=== PATIENT | female | born 1955 | race African-American/Black ===

== ENCOUNTER 2019-12-18 18:56 | IRF | payer MEDICARE, SELFPAY ==
[2019-12-18 18:35] VITALS: BP 152/52; PULSE 70; RESP 18; TEMP 36.6; O2SAT 100; BMI 29.1
--- NOTE | 2019-12-18 19:10 | ADMGEN ---
This patient, Светлана Swan, was admitted to [facility] Room 224-02. Patient/family oriented to hospital policies and general routines including ID bracelet, bed and alarms, visiting hours, pain management, procedures, bathroom and other care routines, personal items, smoking policy, room service/diet, and visiting hours. Valuables list has been completed. Information on how to activate the Rapid Response Team has been discussed. Patient/Family are encouraged to report perceived risks to care and to ask questions if they do not understand what they are told or what they should do.
[2019-12-18 19:57] VITALS: PULSE 88
[2019-12-18] MEDS: ATORVASTATIN 40 MG TABLET PO (19:57)
[2019-12-18] MEDS: METOPROLOL TARTRATE 25 MG TABLET PO (19:57)
[2019-12-18] MEDS: CLONIDINE HCL 0.1 MG TABLET PO (19:58)
[2019-12-18 20:15] LABS: Glucose Point of Care 228 (65-105)
[2019-12-18 22:00] VITALS: BP 152/61; PULSE 85; RESP 18; TEMP 36.6; O2SAT 99
[2019-12-19 05:39] LABS: Basophils Absolute Auto 0.1 K/mm3 (0.0-0.1); Basophils Percent Auto 1.2 % (0.2-1.2); Eosinophils Absolute Auto 0.2 K/mm3 (0-0.3); Eosinophils Percent Auto 2.6 % (0-4.4); Hematocrit 36.4 % (37.0-47.0); Hemoglobin 10.9 g/dL (12.0-15.0); Immature Granulocyte Absolute 0.01 K/mm3 (0.00-0.031); Immature Granulocyte Percent A 0.1 % (0-0.5); Immature Platelet Fraction Pct 17.3 % (0.9-11.2); Lymphocytes Absolute Auto 3.03 K/mm3 (0.9-3.2); Lymphocytes Percent Auto 39.6 % (18.3-44.2); Mean Corpuscular HGB Conc 29.9 g/dl (32-36); Mean Corpuscular Hemoglobin 21.4 pg (26-34); Mean Corpuscular Volume 71.4 fl (80-100); Mean Platelet Volume 12.9 fl (7.4-10.4); Monocytes Absolute Auto 0.8 K/mm3 (0.1-0.6); Monocytes Percent Auto 10.5 % (2.6-8.5); Neutrophils Absolute Auto 3.5 K/mm3 (1.3-6.7); Platelet Count Result 251 k/mm3 (150-375); Red Cell Distribution Width 14.8 % (11.5-14.5); White Blood Count 7.7 K/mm3 (4.5-10.0)
[2019-12-19 05:46] LABS: Blood Urea Nitrogen 11 mg/dL (7-17); Calcium 9.3 mg/dL (8.4-10.2); Carbon Dioxide 27 mmol/L (22-30); Chloride 102 mmol/L (98-107); Cholesterol 207 mg/dL (0-200); Estimated CRCL calculation 61 ml/min; Estimated Glomerular Filt Rate > 60; Glucose 173 mg/dL (65-105); HDL Direct 30 mg/dL; Potassium 3.7 mmol/L (3.4-5.0); Sodium 138 mmol/L (137-145); Triglycerides 189 mg/dL (<150)
[2019-12-19 05:50] LABS: Hemoglobin A1C 10.8 % (<5.7)
[2019-12-19 05:57] LABS: LDL Cholesterol Direct 132 mg/dL
[2019-12-19 06:00] VITALS: BP 174/66; PULSE 76; RESP 18; TEMP 36.9; O2SAT 99
[2019-12-19 06:41] LABS: Glucose Point of Care 189 (65-105)
[2019-12-19 08:42] VITALS: PULSE 84
[2019-12-19] MEDS: ASPIRIN 81 MG ENTERIC TABLET PO (08:42)
[2019-12-19] MEDS: AMLODIPINE BESYLATE 5 MG TABLET 10 MG PO (08:42)
[2019-12-19] MEDS: metFORMIN HCL 500 MG TABLET PO (08:42)
[2019-12-19] MEDS: METOPROLOL TARTRATE 25 MG TABLET PO (08:42)
[2019-12-19] MEDS: CLONIDINE HCL 0.1 MG TABLET PO ×2 (09:10→20:53)
--- NOTE | 2019-12-19 10:30 | WPDREHABHP ---
H&P: HPI History of Present Illness Chief complaint: CVA Narrative: Светлана Swan is a 64 year old female HISTORY OF PRESENT ILLNESS: The patient's primary rehab impairment category is 0 1-stroke The etiologic diagnosis is acute left medial pontine infarct I saw this patient [id number] on December 19, 2019 at 10:30 a.m. however the H&P could not be dictated because of the EHR technology down The patient is a 64-year-old right-handed Afro [place]yanese woman with a prior medical history of hypertension, hyperlipidemia, diabetes mellitus in ( newly diagnosed this admission), who presented to [facility] on December 12, 2019 for chest pain. She also reported dizziness and elevated blood pressure for the week prior to admission. She stated her chest pain was not ache lasting 3 to 5 seconds only. Her blood pressure in the emergency room was 249/96. Patient reported a chronic mild right arm and the right leg weakness but reported that since she has been hospitalized this is [place] she has had significant increase in the right arm and right leg weakness such that the she cannot walk easily. This admission sodium was 133, potassium 3.8, creatinine 0.8, troponin, 1 was negative for injury O on 3 occasions, LDL was elevated to 43 and triglycerides elevated to 196. Her glucose was elevated to 336 with a hemoglobin A1c of 10.2. Chest x-ray demonstrated no acute pulmonary disease, with calcified plaque in the thoracic aorta. EKG demonstrated normal sinus rhythm. 94 beats per minute, right bundle branch block, left posterior fascicular block, and bifascicular block. CT have that head was negative MRI the brain demonstrated a left medial pontine /basis pontis stroke CT of the head demonstrated significant atherosclerosis and calcified plaques affecting the bilateral internal carotid arteries but no large vessel occlusion. Neurology recommended to continue on aspirin and a high-intensity statin. No anticoagulants at this time due to the risk of bleeding. Cardiology would be like to see the patient as an outpatient for a nuclear stress test. The patient presents alert oriented x3 and demonstrated impaired balance decrease stent incoordination and double vision Therapy was initiated at the acute care facility and the patient transferred to us from [facility] on December 18, 2019 on FALLS OR SURGERIES: The patient has had no major surgeries in the 100 days prior to admission. They had no falls in the past year. They had no falls with injury in the past year. PAST MEDICAL HISTORY: hypertension hyperlipidemia and recently diagnosed during this hospitalization at the acute care hospitalization diabetes mellitus PAST SURGICAL HISTORY: none SOCIAL HISTORY: the patient lives with her significant other in a 2nd floor apartment with a full flight of stairs to enter. She was previously completely independent without device she did not drive. FAMILY HISTORY: Noncontributory PRIOR LEVEL OF FUNCTION: Eating was INDEPENDENT Oral Care was INDEPENDENT Toileting Hygiene was INDEPENDENT Shower/Bathing was INDEPENDENT Upper Body Dressing was INDEPENDENT Lower Body Dressing was INDEPENDENT Donning/[place] Footwear was INDEPENDENT Rolling Left and Right was INDEPENDENT Sit to Lying was INDEPENDENT Lying to Sitting was INDEPENDENT Sit to Stand was INDEPENDENT Bed to Chair Transfers was INDEPENDENT Toilet Transfers was INDEPENDENT Walking was INDEPENDENT 750 feet of more with NO DEVICE Wheelchair Mobility was NOT APPLICABLE PRIOR TO ADMISSION Stairs were INDEPENDENT CURRENT LEVEL OF FUNCTION: Eating was independent Oral Care was partial or moderate assist Toileting Hygiene was substantial or maximal assistance Shower/Bathing was substantial or maximal assist Upper Body Dressing was partial or moderate assistance Lower Body Dressing was substantial or maximal assistance Donning/[place] Footwear was subst
[2019-12-19] MEDS: ONDANSETRON HCL ODT 4 MG TABLET PO (11:35)
[2019-12-19 11:46] LABS: Glucose Point of Care 297 (65-105)
[2019-12-19 12:30] VITALS: BP 170/90; PULSE 80
[2019-12-19 14:00] VITALS: BP 141/67; PULSE 70; RESP 20; TEMP 36.6; O2SAT 100
[2019-12-19 15:23] VITALS: BMI 29.1
[2019-12-19 16:51] LABS: Glucose Point of Care 214 (65-105)
--- NOTE | 2019-12-19 17:00 | RPD ---
INDIVIDUALIZED PLAN OF CARE FOR Светлана Swan Brief Synthesis of Pre-Admission Screen, Post-Admission Evaluation and Therapy Evaluations: The patient presents to rehab with Acute left medial pontine infarct. Comorbidities include Hypertension, hyperlipidemia, new onset diabetes mellitus, hypertensive urgency, right-hemiparesis, slurred speech, thoracic aorta atherosclerosis, chest pain, non-adherence to medical therapy, blurry vision, right foot drop.The patient requires physician services for neurology services, medical oversight, and coordination of care. The patient needs physician monitoring of anemia and adverse reactions to new medications. The patient requires nursing services for frequent neuro checks, anticoagulation therapy, medication management and education, pressure relief and skin care management, monitoring of labs, bowel and bladder training, diabetes management and education, and fall/safety precautions. Deficits include:ADLs, Balance, Endurance Mobility, Pain Management, ROM, Safety, Strength,Speech, Transfers Dealer Sales Rep/Case Management for: Discharge Planning and Patient/Family Counseling Physical Therapy: 5 days per week for 75 minutes. Treatments may include: Therapeutic Exercise, Gait Training, Neuromuscular Re-education, Transfer Training, Community Reintegration, Bed Mobility, Patient/Family Education, Wheelchair Mobility Group Therapy/Concurrent Therapy Rationales: -Improve attention span during functional activities in a distracted environment. -Enhance problem solving and/or adequate judgment skills during functional activities in a distracted environment. -Promote increased safety awareness in a distracted environment to reduce fall risk with functional tasks, transfers, and ambulation to allow a more safe, self-sufficient return to the home environment. -Improve dynamic balance skills to promote safety and independence with functional activities in a distracted environment for maximum gain. Occupational Therapy: 5 days per week for 75 minutes. Treatments may include: Therapeutic Exercise, Therapeutic Activity, Cognitive Training, Self-Care Transfer Training, Community Reintegration, Home Management, Patient/Family Education, Wheelchair Mobility Training, Energy Conservation Training Group Therapy/Concurrent Therapy Rationales: -Allow therapist to observe and teach generalization and carry-over of skills learned in individual therapy. -Enhance problem solving and sequencing skills during therapeutic activities in a distracted environment. -Promote increased safety awareness in a realistic setting to reduce fall risk with functional tasks due to visual and verbal distractions. -Increase functional level with ADLs, ADL transfers and use of adaptive equipment through therapeutic activities with others while promoting safety to allow a more safe, self-sufficient return home. Speech Therapy: 5 days per week for 30 minutes. Treatments may include: Dysphasia Therapy, Speech/Language/Communication Therapy, Cognitive Training, Patient/Family Education Group Therapy/Concurrent Therapy - Rationale: -Allow therapist to observe and teach generalization and carry-over of skills learned in individual therapy. -Improve comprehension skills with complex or abstract ideas through discussion in a realistic setting. -Enhance problem solving skills with complex issues during activities in a distracted environment. -Promote increased memory skills and concentration in a distracted environment for a safe transition home. -Improve attention and focus with language/communication skills in a realistic and supportive therapeutic setting. -Allow for practice of expression of basic needs and ideas through functional activities with others. Medical Prognosis: Good Anticipated Length of Stay: 12 days Rehab Goals: Eating Goal: 06-Independent Oral Hygiene Goal: 06-Independent Toileting Hygiene Goal: 06-Independent Shower/Bathe Self Goal: 06-Indepe
[2019-12-19] MEDS: ATORVASTATIN 40 MG TABLET PO (20:52)
[2019-12-19 20:53] VITALS: PULSE 80
[2019-12-19] MEDS: METOPROLOL SUCCINATE EXT REL 50 MG TABCR PO (20:53)
[2019-12-19 21:13] LABS: Glucose Point of Care 258 (65-105)
[2019-12-19 22:00] VITALS: BP 181/68; PULSE 83; RESP 19; TEMP 36.8; O2SAT 99
[2019-12-20 06:00] VITALS: BP 161/67; PULSE 78; RESP 18; TEMP 36.7; O2SAT 100
[2019-12-20 06:41] LABS: Glucose Point of Care 239 (65-105)
[2019-12-20] MEDS: AMLODIPINE BESYLATE 5 MG TABLET 10 MG PO (09:31)
[2019-12-20] MEDS: METOPROLOL SUCCINATE EXT REL 50 MG TABCR PO ×2 (09:32→20:44)
[2019-12-20] MEDS: ASPIRIN 81 MG ENTERIC TABLET PO (09:32)
[2019-12-20] MEDS: metFORMIN HCL 500 MG TABLET PO ×2 (09:32→18:12)
[2019-12-20] MEDS: CLONIDINE HCL 0.1 MG TABLET PO ×2 (09:39→20:44)
[2019-12-20 12:26] LABS: Glucose Point of Care 338 (65-105)
[2019-12-20 14:00] VITALS: BP 147/78; PULSE 72; RESP 17; TEMP 36.3; O2SAT 100
[2019-12-20 17:47] LABS: Glucose Point of Care 248 (65-105)
[2019-12-20] MEDS: INSULIN ASPART (*BKC) 100 UNITS/ML SUB-Q (18:13)
[2019-12-20 20:44] VITALS: PULSE 78
[2019-12-20] MEDS: ATORVASTATIN 40 MG TABLET PO (20:44)
[2019-12-20 21:19] LABS: Glucose Point of Care 232 (65-105)
[2019-12-20 22:00] VITALS: BP 139/66; PULSE 78; RESP 17; TEMP 36.4; O2SAT 98
[2019-12-21 06:00] VITALS: BP 154/59; PULSE 70; RESP 19; TEMP 36.4; O2SAT 100
[2019-12-21 07:16] LABS: Glucose Point of Care 223 (65-105)
[2019-12-21 08:44] VITALS: PULSE 70
[2019-12-21] MEDS: ASPIRIN 81 MG ENTERIC TABLET PO (08:44)
[2019-12-21] MEDS: CLONIDINE HCL 0.1 MG TABLET PO ×2 (08:44→20:13)
[2019-12-21] MEDS: metFORMIN HCL 500 MG TABLET PO ×2 (08:44→18:06)
[2019-12-21] MEDS: AMLODIPINE BESYLATE 5 MG TABLET 10 MG PO (08:44)
[2019-12-21] MEDS: METOPROLOL SUCCINATE EXT REL 50 MG TABCR PO ×2 (08:44→20:10)
[2019-12-21] MEDS: INSULIN ASPART (*BKC) 100 UNITS/ML SUB-Q ×3 (08:45→18:07)
[2019-12-21 12:14] LABS: Glucose Point of Care 273 (65-105)
[2019-12-21 14:00] VITALS: BP 145/54; PULSE 78; RESP 16; TEMP 36.4; O2SAT 100
--- NOTE | 2019-12-21 14:24 | WPDNEURORHBP ---
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 and the right-sided hemiparesis improving and doing fairly well with using the patch alternating right left eye Patient denies any headache chest pain shortness of breath or any neurological complaints or findings Review of Systems Constitutional: Constitutional: Reports no additional constitutional complaints Eyes: Eyes: Reports no additional eye complaints ENT: Reports system reviewed and no additional complaints, except as documented Cardiovascular: Cardiovascular: Reports no additional cardiovascular complaints Respiratory: Respiratory: Reports no additional respiratory complaints Gastrointestinal: Gastrointestinal: Reports no additional gastrointestinal complaints Genitourinary: Genitourinary: Reports no additional female genitourinary complaints Musculoskeletal: Musculoskeletal: Reports no additional musculoskeletal complaints Integumentary/Breasts: Skin/Breast: Reports system reviewed and no additional complaints, except as docu Neurologic: Reports system reviewed and no additional complaints, except as documented Psychiatric: Psychiatric: Reports no additional psychiatric complaints Functional Status Ambulation Ability Ability to Ambulate 10 Feet: Minimum Assistance X 1 Ability to Ambulate 50 Feet With 2 Turns: Minimum Assistance X 1 Ability to Ambulate 150 Feet: Minimum Assistance X 1 Ambulation Assistive Devices: Walker, Wheeled Transfers Ability Ability to Transfer In/Out of Chair: Minimum Assistance X 1 Exam Const: General: comfortable and no acute distress HENMT: General nose exam: Normal nares present Mouth: Yes moist mucous membranes Eyes: Other: left 6th nerve palsy stable Neck: Neck: supple and no JVD Resp: Effort & Inspection: normal respiratory effort Auscultation: clear to auscultation bilaterally Cardio: Rate: regular rate Rhythm: regular rhythm GI: GI Palp: Yes Soft to palpation Auscultation: normal bowel sounds : External Female Exam: normal external appearance Skin: General skin exam: normal color and no rashes or lesions noted Neuro: Other: right-sided hemiparesis of moderately severe degree and left-sided 6th not palsy slowly improving Extrem: General: normal to inspection Objective Data Vital Signs Vital Signs: Vital Signs - 24 hr 12/20/19 20:44 12/20/19 22:00 12/21/19 06:00 Temperature 36.4 C 36.4 C L Pulse Rate 78 78 70 Respiratory Rate 17 19 Blood Pressure 139/66 154/59 H Pulse Oximetry 98 100 12/21/19 08:44 Temperature Pulse Rate 70 Respiratory Rate Blood Pressure Pulse Oximetry Intake/Output Intake/Output: Intake & Output 12/18/19 12/19/19 12/20/19 12/21/19 23:59 23:59 23:59 23:59 Intake Total 720 960 360 Balance 720 960 360 Meds/Results Medications: Active Medications Generic Name Dose Route Start Last Admin Trade Name Freq PRN Reason Stop Dose Admin Amlodipine Besylate 10 mg 12/19/19 09:00 12/21/19 08:44 Norvasc PO 10 mg DAILY HARRISON Administration Aspirin 81 mg 12/19/19 09:00 12/21/19 08:44 Aspirin Ec PO 81 mg DAILY HARRISON Administration Atorvastatin Calcium 40 mg 12/18/19 21:00 12/20/19 20:44 Lipitor PO 40 mg HS HARRISON Administration Clonidine HCl 0.1 mg 12/18/19 21:00 12/21/19 08:44 Catapres PO 0.1 mg Q12H HARRISON Administration Dextrose 12.5 gm 12/20/19 16:07 Dextrose 50% Syringe IV PUSH PRN PRN Hypoglycemia Protocol Glucagon 1 mg 12/20/19 16:07 Glucagon For Inj IM PRN PRN Hypoglycemia Protocol Glucose 15 gm 12/20/19 16:07 Glutose 15 PO PRN PRN Hypoglycemia Protocol Dextrose 1,000 mls @ 100 mls/hr 12/20/19 16:07 Dextrose 5% 1,000 Ml IVPB PRN PRN Hypoglycemia Protocol Insulin Aspart 2 - 5 units 12/20/19 17:00 12/21/19 12:28 Novolog SUB-Q 3 units
[2019-12-21 17:44] LABS: Glucose Point of Care 212 (65-105)
[2019-12-21 20:10] VITALS: PULSE 80
[2019-12-21] MEDS: ATORVASTATIN 40 MG TABLET PO (20:10)
[2019-12-21 20:35] LABS: Glucose Point of Care 215 (65-105)
[2019-12-21 22:00] VITALS: BP 148/63; PULSE 78; RESP 18; TEMP 36.4; O2SAT 100
[2019-12-22 06:00] VITALS: BP 140/70; PULSE 72; RESP 18; TEMP 36.6; O2SAT 100
[2019-12-22 07:06] LABS: Glucose Point of Care 225 (65-105)
[2019-12-22 10:30] VITALS: BP 157/54; PULSE 75
[2019-12-22 10:31] VITALS: PULSE 75
[2019-12-22] MEDS: METOPROLOL SUCCINATE EXT REL 50 MG TABCR PO ×2 (10:31→20:31)
[2019-12-22] MEDS: metFORMIN HCL 500 MG TABLET PO ×2 (10:31→17:46)
[2019-12-22] MEDS: CLONIDINE HCL 0.1 MG TABLET PO ×2 (10:32→20:31)
[2019-12-22] MEDS: ASPIRIN 81 MG ENTERIC TABLET PO (10:32)
[2019-12-22] MEDS: AMLODIPINE BESYLATE 5 MG TABLET 10 MG PO (10:32)
[2019-12-22] MEDS: INSULIN ASPART (*BKC) 100 UNITS/ML SUB-Q ×3 (10:33→17:47)
[2019-12-22 12:27] LABS: Glucose Point of Care 272 (65-105)
[2019-12-22 14:00] VITALS: BP 172/64; PULSE 77; RESP 18; TEMP 36.3; O2SAT 100
[2019-12-22 17:25] LABS: Glucose Point of Care 221 (65-105)
[2019-12-22 20:31] VITALS: PULSE 76
[2019-12-22] MEDS: ATORVASTATIN 40 MG TABLET PO (20:31)
[2019-12-22 21:30] LABS: Glucose Point of Care 224 (65-105)
[2019-12-22 22:00] VITALS: BP 167/64; PULSE 77; RESP 18; TEMP 36.2; O2SAT 100
[2019-12-23 06:00] VITALS: BP 148/74; PULSE 72; RESP 18; TEMP 36.3; O2SAT 100
[2019-12-23 06:43] LABS: Glucose Point of Care 243 (65-105)
[2019-12-23 09:07] VITALS: PULSE 72
[2019-12-23] MEDS: CLONIDINE HCL 0.1 MG TABLET PO ×2 (09:07→20:33)
[2019-12-23] MEDS: ASPIRIN 81 MG ENTERIC TABLET PO (09:07)
[2019-12-23] MEDS: AMLODIPINE BESYLATE 5 MG TABLET 10 MG PO (09:07)
[2019-12-23] MEDS: metFORMIN HCL 500 MG TABLET PO ×2 (09:07→17:52)
[2019-12-23] MEDS: METOPROLOL SUCCINATE EXT REL 50 MG TABCR PO ×2 (09:07→20:33)
[2019-12-23] MEDS: INSULIN ASPART (*BKC) 100 UNITS/ML SUB-Q ×2 (09:09→12:38)
[2019-12-23 12:28] LABS: Glucose Point of Care 277 (65-105)
--- NOTE | 2019-12-23 12:43 | WPDNEURORHBP ---
Subjective Date/time seen: 12/23/19 12:43 Interval history: this 64-year-old Afro-[place] woman is here recuperating from stroke she has left-sided medial pontine infarct with 6th nerve palsy and right-sided hemiparesis patient denies any further neurological symptoms her diplopia is improving she is using alternating covering the eyes and of course engage in therapy quite well The niece and sister were present at the time of team conference their questions were answered patient is making progress no headache chest pain shortness of breath nausea vomiting fevers chills sore throat Review of Systems Constitutional: Constitutional: Reports no additional constitutional complaints Eyes: Eyes: Reports no additional eye complaints ENT: Reports system reviewed and no additional complaints, except as documented Cardiovascular: Cardiovascular: Reports no additional cardiovascular complaints Respiratory: Respiratory: Reports no additional respiratory complaints Gastrointestinal: Gastrointestinal: Reports no additional gastrointestinal complaints Genitourinary: Genitourinary: Reports no additional female genitourinary complaints Musculoskeletal: Musculoskeletal: Reports no additional musculoskeletal complaints Integumentary/Breasts: Skin/Breast: Reports system reviewed and no additional complaints, except as docu Neurologic: Reports system reviewed and no additional complaints, except as documented Psychiatric: Psychiatric: Reports no additional psychiatric complaints Functional Status Ambulation Ability Ability to Ambulate 10 Feet: Contact Guard Ability to Ambulate 50 Feet With 2 Turns: Contact Guard Ability to Ambulate 150 Feet: Contact Guard Ambulation Assistive Devices: Walker, Wheeled Transfers Ability Ability to Transfer In/Out of Chair: Minimum Assistance X 1 Exam Const: General: comfortable and no acute distress HENMT: General nose exam: Normal nares present Mouth: Yes moist mucous membranes Eyes: Other: improving 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 Neck: Neck: supple and no JVD Resp: Effort & Inspection: normal respiratory effort Auscultation: clear to auscultation bilaterally Cardio: Rate: regular rate Rhythm: regular rhythm GI: GI Palp: Yes Soft to palpation Auscultation: normal bowel sounds Skin: General skin exam: normal color and no rashes or lesions noted Neuro: Other: improving cranial nerve palsy and right-sided hemiparesis her sugars are in 200s we will ask over childbirth educator to give suggestion Extrem: General: normal to inspection Objective Data Vital Signs Vital Signs: Vital Signs - 24 hr 12/22/19 14:00 12/22/19 20:31 12/22/19 22:00 Temperature 36.3 C L 36.2 C L Pulse Rate 77 76 77 Respiratory Rate 18 18 Blood Pressure 172/64 H 167/64 H Pulse Oximetry 100 100 12/23/19 06:00 12/23/19 09:07 Temperature 36.3 C L Pulse Rate 72 72 Respiratory Rate 18 Blood Pressure 148/74 H Pulse Oximetry 100 Intake/Output Intake/Output: Intake & Output 12/20/19 12/21/19 12/22/19 12/23/19 23:59 23:59 23:59 23:59 Intake Total 960 960 600 360 Balance 960 960 600 360 Meds/Results Medications: Active Medications Generic Name Dose Route Start Last Admin Trade Name Freq PRN Reason Stop Dose Admin Amlodipine Besylate 10 mg 12/19/19 09:00 12/23/19 09:07 Norvasc PO 10 mg DAILY HARRISON Administration Aspirin 81 mg 12/19/19 09:00 12/23/19 09:07 Aspirin Ec PO 81 mg DAILY HARRISON Administration Atorvastatin Calcium 40 mg 12/18/19 21:00 12/22/19 20:31 Lipitor PO 40 mg HS HARRISON Administration Clonidine HCl 0.1 mg 12/18/19 21:00 12/23/19 09:07 Catapres PO 0.1 mg Q12H HARRISON Administration Dextrose 12.5 gm 12/20/19 16:07 Dextrose 50% Syringe IV PUSH PRN PRN Hypoglycemia Protocol Glucagon 1 mg 12/20/19 16:07 Glucagon For Inj IM PRN PRN Hypoglycemia Protocol Glucose 15 gm 12/20/19 16:07 Glutose 15 PO
[2019-12-23 14:00] VITALS: BP 138/61; PULSE 70; RESP 16; TEMP 36.3; O2SAT 100
--- NOTE | 2019-12-23 15:22 | PCCCNOTE ---
On 12/23/19, the student, [Samm Perea ], provided care and completed [facility] documentation on this patient. I have reviewed the student's documentation and agree with the findings.
[2019-12-23 17:14] LABS: Glucose Point of Care 185 (65-105)
[2019-12-23 20:33] VITALS: PULSE 80
[2019-12-23] MEDS: ATORVASTATIN 40 MG TABLET PO (20:33)
[2019-12-23 21:51] LABS: Glucose Point of Care 208 (65-105)
[2019-12-23 22:00] VITALS: BP 159/66; PULSE 80; RESP 20; TEMP 36.6; O2SAT 100
[2019-12-24 06:00] VITALS: BP 152/69; PULSE 82; RESP 20; TEMP 36.2; O2SAT 96
[2019-12-24 08:11] LABS: Glucose Point of Care 222 (65-105)
[2019-12-24] MEDS: metFORMIN HCL 500 MG TABLET PO ×2 (08:38→17:07)
[2019-12-24] MEDS: ASPIRIN 81 MG ENTERIC TABLET PO (08:38)
[2019-12-24] MEDS: AMLODIPINE BESYLATE 5 MG TABLET 10 MG PO (08:38)
[2019-12-24 08:39] VITALS: PULSE 82
[2019-12-24] MEDS: INSULIN ASPART (*BKC) 100 UNITS/ML SUB-Q ×2 (08:39→12:35)
[2019-12-24] MEDS: METOPROLOL SUCCINATE EXT REL 50 MG TABCR PO ×2 (08:39→21:20)
[2019-12-24] MEDS: CLONIDINE HCL 0.1 MG TABLET PO ×2 (08:39→21:19)
--- NOTE | 2019-12-24 11:14 | WPDNEURORHBP ---
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 and right-sided hemiparesis from which she is improving quite a bit She denies any headache nausea vomiting chest pain shortness of breath Review of Systems Constitutional: Constitutional: Reports no additional constitutional complaints Eyes: Eyes: Reports no additional eye complaints ENT: Reports system reviewed and no additional complaints, except as documented Cardiovascular: Cardiovascular: Reports no additional cardiovascular complaints Respiratory: Respiratory: Reports no additional respiratory complaints Gastrointestinal: Gastrointestinal: Reports no additional gastrointestinal complaints Genitourinary: Genitourinary: Reports no additional female genitourinary complaints Musculoskeletal: Musculoskeletal: Reports no additional musculoskeletal complaints Integumentary/Breasts: Skin/Breast: Reports system reviewed and no additional complaints, except as docu Neurologic: Reports system reviewed and no additional complaints, except as documented Psychiatric: Psychiatric: Reports no additional psychiatric complaints Functional Status Ambulation Ability Ability to Ambulate 10 Feet: Standby Assistance Ability to Ambulate 50 Feet With 2 Turns: Standby Assistance Ability to Ambulate 150 Feet: Contact Guard Ambulation Assistive Devices: Walker, Wheeled Transfers Ability Ability to Transfer In/Out of Chair: Minimum Assistance X 1 Exam Const: General: comfortable and no acute distress HENMT: General nose exam: Normal nares present Mouth: Yes moist mucous membranes Eyes: General: appearance normal, both eyes and all related structures Neck: Neck: supple and no JVD Resp: Effort & Inspection: normal respiratory effort Auscultation: clear to auscultation bilaterally Cardio: Rate: regular rate Rhythm: regular rhythm GI: GI Palp: Yes Soft to palpation Auscultation: normal bowel sounds Skin: General skin exam: normal color and no rashes or lesions noted Neuro: Other: the 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 and right-sided hemiparesis is improving Extrem: General: normal to inspection Objective Data Vital Signs Vital Signs: Vital Signs - 24 hr 12/23/19 14:00 12/23/19 20:33 12/23/19 22:00 Temperature 36.3 C L 36.6 C Pulse Rate 70 80 80 Respiratory Rate 16 20 Blood Pressure 138/61 159/66 H Pulse Oximetry 100 100 12/24/19 06:00 12/24/19 08:39 Temperature 36.2 C L Pulse Rate 82 82 Respiratory Rate 20 Blood Pressure 152/69 H Pulse Oximetry 96 Intake/Output Intake/Output: Intake & Output 12/21/19 12/22/19 12/23/19 12/24/19 23:59 23:59 23:59 23:59 Intake Total 960 600 840 240 Balance 960 600 840 240 Meds/Results Medications: Active Medications Generic Name Dose Route Start Last Admin Trade Name Freq PRN Reason Stop Dose Admin Amlodipine Besylate 10 mg 12/19/19 09:00 12/24/19 08:38 Norvasc PO 10 mg DAILY HARRISON Administration Aspirin 81 mg 12/19/19 09:00 12/24/19 08:38 Aspirin Ec PO 81 mg DAILY HARRISON Administration Atorvastatin Calcium 40 mg 12/18/19 21:00 12/23/19 20:33 Lipitor PO 40 mg HS HARRISON Administration Clonidine HCl 0.1 mg 12/18/19 21:00 12/24/19 08:39 Catapres PO 0.1 mg Q12H HARRISON Administration Dextrose 12.5 gm 12/20/19 16:07 Dextrose 50% Syringe IV PUSH PRN PRN Hypoglycemia Protocol Glucagon 1 mg 12/20/19 16:07 Glucagon For Inj IM PRN PRN Hypoglycemia Protocol Glucose 15 gm 12/20/19 16:07 Glutose 15 PO PRN PRN Hypoglycemia Protocol Dextrose 1,000 mls @ 100 mls/hr 12/20/19 16:07 Dextrose 5% 1,000 Ml IVPB PRN PRN Hypoglycemia Protocol Insulin Aspart 2 - 5 units 12/20/19 17:00 12/24/19 08:39 Novolog SUB-Q 2 units TIDWM HARRISON Administration Protoc
[2019-12-24 12:14] LABS: Glucose Point of Care 291 (65-105)
[2019-12-24] MEDS: SENNA/DOCUSATE SODIUM TABLET 2 TAB PO (12:35)
[2019-12-24 14:00] VITALS: BP 147/64; PULSE 75; RESP 16; TEMP 36.2; O2SAT 98
[2019-12-24 16:52] LABS: Glucose Point of Care 182 (65-105)
[2019-12-24] MEDS: ATORVASTATIN 40 MG TABLET PO (21:17)
[2019-12-24 21:20] VITALS: PULSE 72
[2019-12-24 22:00] VITALS: BP 158/61; PULSE 59; RESP 18; TEMP 36.4; O2SAT 97
[2019-12-24 22:34] LABS: Glucose Point of Care 221 (65-105)
[2019-12-25 06:00] VITALS: BP 134/52; PULSE 82; RESP 18; TEMP 36.8; O2SAT 97
[2019-12-25 07:14] LABS: Glucose Point of Care 190 (65-105)
[2019-12-25] MEDS: AMLODIPINE BESYLATE 5 MG TABLET 10 MG PO (08:52)
[2019-12-25] MEDS: ASPIRIN 81 MG ENTERIC TABLET PO (08:52)
[2019-12-25] MEDS: metFORMIN HCL 500 MG TABLET PO ×2 (08:52→17:53)
[2019-12-25 08:53] VITALS: PULSE 82
[2019-12-25] MEDS: CLONIDINE HCL 0.1 MG TABLET PO ×2 (08:53→21:43)
[2019-12-25] MEDS: METOPROLOL SUCCINATE EXT REL 50 MG TABCR PO ×2 (08:53→21:43)
[2019-12-25 12:30] LABS: Glucose Point of Care 254 (65-105)
[2019-12-25] MEDS: INSULIN ASPART (*BKC) 100 UNITS/ML SUB-Q ×2 (12:44→17:53)
[2019-12-25 14:00] VITALS: BP 156/60; PULSE 80; RESP 20; TEMP 36.6; O2SAT 100
[2019-12-25 17:15] LABS: Glucose Point of Care 271 (65-105)
[2019-12-25 20:46] LABS: Glucose Point of Care 183 (65-105)
[2019-12-25] MEDS: ATORVASTATIN 40 MG TABLET PO (21:39)
[2019-12-25 21:43] VITALS: PULSE 80
[2019-12-25 22:00] VITALS: BP 159/64; PULSE 75; RESP 18; TEMP 36.8; O2SAT 98
[2019-12-26 04:57] LABS: Basophils Absolute Auto 0.1 K/mm3 (0.0-0.1); Basophils Percent Auto 1.4 % (0.2-1.2); Eosinophils Absolute Auto 0.3 K/mm3 (0-0.3); Eosinophils Percent Auto 3.1 % (0-4.4); Hematocrit 36.1 % (37.0-47.0); Hemoglobin 10.8 g/dL (12.0-15.0); Immature Granulocyte Absolute 0.02 K/mm3 (0.00-0.031); Immature Granulocyte Percent A 0.2 % (0-0.5); Immature Platelet Fraction Pct 15.8 % (0.9-11.2); Lymphocytes Absolute Auto 3.17 K/mm3 (0.9-3.2); Lymphocytes Percent Auto 36.3 % (18.3-44.2); Mean Corpuscular HGB Conc 29.9 g/dl (32-36); Mean Corpuscular Hemoglobin 21.6 pg (26-34); Mean Corpuscular Volume 72.2 fl (80-100); Mean Platelet Volume 13.2 fl (7.4-10.4); Monocytes Absolute Auto 0.7 K/mm3 (0.1-0.6); Monocytes Percent Auto 8.2 % (2.6-8.5); Neutrophils Absolute Auto 4.4 K/mm3 (1.3-6.7); Neutrophils Percent Auto 50.8 % (45.5-73.1); Platelet Count Result 241 k/mm3 (150-375); Red Cell Distribution Width 14.9 % (11.5-14.5); White Blood Count 8.7 K/mm3 (4.5-10.0)
[2019-12-26 05:15] LABS: Blood Urea Nitrogen 12 mg/dL (7-17); Calcium 9.3 mg/dL (8.4-10.2); Carbon Dioxide 26 mmol/L (22-30); Chloride 99 mmol/L (98-107); Estimated CRCL calculation 70 ml/min; Estimated Glomerular Filt Rate > 60; Glucose 197 mg/dL (65-105); Sodium 135 mmol/L (137-145)
[2019-12-26 06:00] VITALS: BP 131/55; PULSE 74; RESP 18; TEMP 36.9; O2SAT 99
[2019-12-26 06:04] LABS: Large Platelets Present; Platelet Estimate Adequate (Adequate)
[2019-12-26 06:05] LABS: Hypochromasia 1+ (NORMAL)
[2019-12-26 07:40] LABS: Glucose Point of Care 222 (65-105)
[2019-12-26 09:16] VITALS: PULSE 55
[2019-12-26] MEDS: AMLODIPINE BESYLATE 5 MG TABLET 10 MG PO (09:16)
[2019-12-26] MEDS: CLONIDINE HCL 0.1 MG TABLET PO ×2 (09:16→20:13)
[2019-12-26] MEDS: ASPIRIN 81 MG ENTERIC TABLET PO (09:16)
[2019-12-26] MEDS: metFORMIN HCL 500 MG TABLET PO (09:16)
[2019-12-26] MEDS: METOPROLOL SUCCINATE EXT REL 50 MG TABCR PO ×2 (09:16→20:14)
[2019-12-26] MEDS: INSULIN ASPART (*BKC) 100 UNITS/ML SUB-Q ×3 (09:17→17:57)
[2019-12-26 10:30] VITALS: BMI 29.1
--- NOTE | 2019-12-26 11:30 | PCDIET ---
Nutrition Follow-Up Complete: Altered nutrition related labs related to diabetes mellitus as evidenced by HgbA1C of 10.8%. Patient to consume 75% of meals or greater Goal met. Pt has eaten 75-100% of all meals. Nutrition recommendation: Recommend continuation of DM CHO consistent diet to ensure pt's nutritional needs are met and blood glucose levels can be controlled. Last recorded weight is 69.9 kg. Bowel Motility: +BM 12/24 Labs Reviewed:Na(135), K(4.0), Cr(0.6), Glu(197) Meds Noted:Senokot, Zofran ODT, metformin Additional Notes: Pt states appetite comes and goes, has been eating 75-100% of all meals. Pt reports no N/V or abdominal pain. She does complain of constipation but says this is normal, even at home she has issues with constipation. Briefly discussed with her that foods with fiber (vegetables, whole grains), along with adequate fluid intake can help with constipation. Noted pt is receiving Senokot. Follow up in 7 days.
--- NOTE | 2019-12-26 12:17 | PCNSR ---
On 12/26/19, the student, Kinjal Burgos, provided care and completed [facility] documentation on this patient. I have reviewed the student's documentation and agree with the findings.
[2019-12-26 12:44] LABS: Glucose Point of Care 248 (65-105)
[2019-12-26 14:00] VITALS: BP 138/59; PULSE 70; RESP 16; TEMP 36.6; O2SAT 100
--- NOTE | 2019-12-26 15:04 | WPDNEURORHBP ---
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 with diplopia and right-sided hemiparesis Patient is improving overall however is still is bothered by double vision until a less she puts the eye patch on to have monocular vision but she will be comfortable to deal with it She denies any headache chest pain shortness of breath nausea vomiting Review of Systems Constitutional: Constitutional: Reports no additional constitutional complaints Eyes: Eyes: Reports no additional eye complaints ENT: Reports system reviewed and no additional complaints, except as documented Cardiovascular: Cardiovascular: Reports no additional cardiovascular complaints Respiratory: Respiratory: Reports no additional respiratory complaints Gastrointestinal: Gastrointestinal: Reports no additional gastrointestinal complaints Genitourinary: Genitourinary: Reports no additional female genitourinary complaints Musculoskeletal: Musculoskeletal: Reports no additional musculoskeletal complaints Integumentary/Breasts: Skin/Breast: Reports system reviewed and no additional complaints, except as docu Neurologic: Reports system reviewed and no additional complaints, except as documented Psychiatric: Psychiatric: Reports no additional psychiatric complaints Functional Status Ambulation Ability Ability to Ambulate 10 Feet: Standby Assistance Ability to Ambulate 50 Feet With 2 Turns: Contact Guard Ability to Ambulate 150 Feet: Contact Guard Ambulation Assistive Devices: Walker, Wheeled Transfers Ability Ability to Transfer In/Out of Chair: Standby Assistance Exam Const: General: comfortable and no acute distress HENMT: General nose exam: Normal nares present Mouth: Yes moist mucous membranes Eyes: General: appearance normal, both eyes and all related structures Other: the 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 roughly about the same Neck: Neck: supple and no JVD Resp: Effort & Inspection: normal respiratory effort Auscultation: clear to auscultation bilaterally Cardio: Rate: regular rate Rhythm: regular rhythm GI: GI Palp: Yes Soft to palpation Auscultation: normal bowel sounds Skin: General skin exam: normal color and no rashes or lesions noted Neuro: Other: right-sided hemiparesis is improving she is engage in therapy the left 6th nerve palsy related to brainstem stroke is more or less the same however the patient is much more comfortable when she uses the eye patch alternating with 1 eye and then the other eye Extrem: General: normal to inspection Objective Data Vital Signs Vital Signs: Vital Signs - 24 hr 12/25/19 21:43 12/25/19 22:00 12/26/19 06:00 Temperature 36.8 C 36.9 C Pulse Rate 80 75 74 Respiratory Rate 18 18 Blood Pressure 159/64 H 131/55 L Pulse Oximetry 98 99 12/26/19 09:16 Temperature Pulse Rate 55 L Respiratory Rate Blood Pressure Pulse Oximetry Intake/Output Intake/Output: Intake & Output 12/23/19 12/24/19 12/25/19 12/26/19 23:59 23:59 23:59 23:59 Intake Total 840 480 840 360 Balance 840 480 840 360 Meds/Results Medications: Active Medications Generic Name Dose Route Start Last Admin Trade Name Freq PRN Reason Stop Dose Admin Amlodipine Besylate 10 mg 12/19/19 09:00 12/26/19 09:16 Norvasc PO 10 mg DAILY HARRISON Administration Aspirin 81 mg 12/19/19 09:00 12/26/19 09:16 Aspirin Ec PO 81 mg DAILY HARRISON Administration Atorvastatin Calcium 40 mg 12/18/19 21:00 12/25/19 21:39 Lipitor PO 40 mg HS HARRISON Administration Clonidine HCl 0.1 mg 12/18/19 21:00 12/26/19 09:16 Catapres PO 0.1 mg Q12H HARRISON Administration Dextrose 12.5 gm 12/20/19 16:07 Dextrose 50% Syringe IV PUSH PRN PRN Hypoglycemia Protocol Glucagon 1 mg 12/20/19 16:07 Glucagon For Inj IM PRN PRN Hypoglycemia [place]
[2019-12-26 17:47] LABS: Glucose Point of Care 220 (65-105)
[2019-12-26] MEDS: metFORMIN HCL 500 MG TABLET 1000 MG PO (17:57)
[2019-12-26] MEDS: ATORVASTATIN 40 MG TABLET PO (20:13)
[2019-12-26 20:14] VITALS: PULSE 82
[2019-12-26 21:51] LABS: Glucose Point of Care 211 (65-105)
[2019-12-26 22:00] VITALS: BP 142/54; PULSE 75; RESP 18; TEMP 36.2; O2SAT 100
[2019-12-27 06:00] VITALS: BP 136/68; PULSE 70; RESP 18; TEMP 36.3; O2SAT 100
[2019-12-27] MEDS: SENNA/DOCUSATE SODIUM TABLET 2 TAB PO (06:06)
[2019-12-27 07:06] LABS: Glucose Point of Care 202 (65-105)
[2019-12-27] MEDS: INSULIN ASPART (*BKC) 100 UNITS/ML SUB-Q ×2 (08:31→12:01)
[2019-12-27] MEDS: metFORMIN HCL 500 MG TABLET 1000 MG PO ×2 (08:34→16:53)
[2019-12-27] MEDS: ASPIRIN 81 MG ENTERIC TABLET PO (08:34)
[2019-12-27] MEDS: AMLODIPINE BESYLATE 5 MG TABLET 10 MG PO (08:34)
[2019-12-27] MEDS: METOPROLOL SUCCINATE EXT REL 50 MG TABCR PO ×2 (08:34→20:26)
[2019-12-27] MEDS: CLONIDINE HCL 0.1 MG TABLET PO ×2 (08:35→20:26)
--- NOTE | 2019-12-27 11:45 | WPDNEURORHBP ---
Subjective Date/time seen: December 27, 2019 at 11:45 a.m. Interval history: this pleasant 64-year-old Afro-Algerian woman is on the rehab after suffering from brainstem stroke with double vision related to post left 6th nerve palsy and right-sided hemiparesis She is improving quite a bit as for as and motor functions concerned however her double vision is lagging behind because of the 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 for which she is using the patch and it does help with monocular vision without any Doppler diplopia She denies any neurological symptoms particularly no headache no more extra weakness no chest pain no shortness of breath no nausea vomiting diarrhea abdominal pain or discomfort or urinary discomfort Review of Systems Constitutional: Constitutional: Reports no additional constitutional complaints Eyes: Eyes: Reports no additional eye complaints ENT: Reports system reviewed and no additional complaints, except as documented Cardiovascular: Cardiovascular: Reports no additional cardiovascular complaints Respiratory: Respiratory: Reports no additional respiratory complaints Gastrointestinal: Gastrointestinal: Reports no additional gastrointestinal complaints Genitourinary: Genitourinary: Reports no additional female genitourinary complaints Musculoskeletal: Musculoskeletal: Reports no additional musculoskeletal complaints Integumentary/Breasts: Skin/Breast: Reports system reviewed and no additional complaints, except as docu Neurologic: Reports system reviewed and no additional complaints, except as documented Psychiatric: Psychiatric: Reports no additional psychiatric complaints Functional Status Ambulation Ability Ability to Ambulate 10 Feet: Standby Assistance Ability to Ambulate 50 Feet With 2 Turns: Contact Guard Ability to Ambulate 150 Feet: Contact Guard Ambulation Assistive Devices: Walker, Wheeled Transfers Ability Ability to Transfer In/Out of Chair: Standby Assistance Exam Const: General: comfortable and no acute distress HENMT: General nose exam: Normal nares present Mouth: Yes moist mucous membranes Eyes: General: appearance normal, both eyes and all related structures Other: the 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 roughly remains about the same Neck: Neck: supple and no JVD Resp: Effort & Inspection: normal respiratory effort Auscultation: clear to auscultation bilaterally Cardio: Rate: regular rate Rhythm: regular rhythm GI: GI Palp: Yes Soft to palpation Auscultation: normal bowel sounds Skin: General skin exam: normal color and no rashes or lesions noted Neuro: Other: patient's mental status examination is decent and within the normal range the cranial examination apart from showing the 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 fairly decent the right-sided weakness is also improving with the help of the PT and OT and she is quite happy with the care she is receiving in the improvement she sees Extrem: General: normal to inspection Objective Data Vital Signs Vital Signs: Vital Signs - 24 hr 12/27/19 14:00 12/27/19 20:26 12/27/19 22:00 Temperature 36.3 C L 36.8 C Pulse Rate 77 76 71 Respiratory Rate 18 18 Blood Pressure 139/51 L 141/52 H Pulse Oximetry 100 100 12/28/19 06:00 12/28/19 08:00 12/28/19 09:54 Temperature 36.5 C Pulse Rate 78 78 78 Respiratory Rate 18 18 Blood Pressure 138/60 Pulse Oximetry 100 100 Intake/Output Intake/Output: Intake & Output 12/25/19 12/26/19 12/27/19 12/28/19 23:59 23:59 23:59 23:59 Intake Total 840 480 410 240 Balance 840 480 410 240 Meds/Results Medications: Active Medications Generic Name Dose Route Start Last Admin Trade Name Mindy PRN Reason Stop Dose Admin Amlodipine Besylate 10 mg 12/19/19 09:00 12/28/19 09:54 Norvasc PO 10 mg DAILY HARRISON Administration Aspirin 81 mg 12/19/19 09:00 12/28/19 09:53 Aspirin Ec PO 81 mg DAILY HARRISON Administration Atorvastatin Calcium 40 mg 12/18/19 21:00 12/27/19 20:26
[2019-12-27 12:20] LABS: Glucose Point of Care 215 (65-105)
[2019-12-27 14:00] VITALS: BP 139/51; PULSE 77; RESP 18; TEMP 36.3; O2SAT 100
[2019-12-27 17:21] LABS: Glucose Point of Care 183 (65-105)
[2019-12-27 20:26] VITALS: PULSE 76
[2019-12-27] MEDS: ATORVASTATIN 40 MG TABLET PO (20:26)
[2019-12-27 21:26] LABS: Glucose Point of Care 181 (65-105)
[2019-12-27 22:00] VITALS: BP 141/52; PULSE 71; RESP 18; TEMP 36.8; O2SAT 100
[2019-12-28 06:00] VITALS: BP 138/60; PULSE 78; RESP 18; TEMP 36.5; O2SAT 100
[2019-12-28 06:40] LABS: Glucose Point of Care 181 (65-105)
[2019-12-28 08:00] VITALS: PULSE 78; RESP 18; O2SAT 100
[2019-12-28] MEDS: ASPIRIN 81 MG ENTERIC TABLET PO (09:53)
[2019-12-28 09:54] VITALS: PULSE 78
[2019-12-28] MEDS: AMLODIPINE BESYLATE 5 MG TABLET 10 MG PO (09:54)
[2019-12-28] MEDS: METOPROLOL SUCCINATE EXT REL 50 MG TABCR PO ×2 (09:54→20:29)
[2019-12-28] MEDS: metFORMIN HCL 500 MG TABLET 1000 MG PO ×2 (09:54→17:41)
[2019-12-28] MEDS: CLONIDINE HCL 0.1 MG TABLET PO ×2 (09:54→20:29)
[2019-12-28 11:52] LABS: Glucose Point of Care 234 (65-105)
[2019-12-28] MEDS: INSULIN ASPART (*BKC) 100 UNITS/ML SUB-Q (12:48)
[2019-12-28 14:00] VITALS: BP 121/50; PULSE 77; RESP 18; TEMP 36.7; O2SAT 100
--- NOTE | 2019-12-28 14:29 | WPDNEURORHBP ---
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 and right-sided hemiparesis The right-sided hemiparesis is improving however the left 6th nerve palsy still bothering and she has to wear the patch alternating with 1 eye with the other to avoid double vision consequently to avoid diplopia with headache She denies anyChills sore throat nausea vomiting abdominal pain diarrhea chest pain or shortness of breath Review of Systems Constitutional: Constitutional: Reports no additional constitutional complaints Eyes: Eyes: Reports no additional eye complaints ENT: Reports system reviewed and no additional complaints, except as documented Cardiovascular: Cardiovascular: Reports no additional cardiovascular complaints Respiratory: Respiratory: Reports no additional respiratory complaints Gastrointestinal: Gastrointestinal: Reports no additional gastrointestinal complaints Genitourinary: Genitourinary: Reports no additional female genitourinary complaints Musculoskeletal: Musculoskeletal: Reports no additional musculoskeletal complaints Integumentary/Breasts: Skin/Breast: Reports system reviewed and no additional complaints, except as docu Neurologic: Reports system reviewed and no additional complaints, except as documented Psychiatric: Psychiatric: Reports no additional psychiatric complaints Functional Status Ambulation Ability Ability to Ambulate 10 Feet: Standby Assistance Ability to Ambulate 50 Feet With 2 Turns: Contact Guard Ability to Ambulate 150 Feet: Contact Guard Ambulation Assistive Devices: Walker, Wheeled Transfers Ability Ability to Transfer In/Out of Chair: Standby Assistance Exam Const: General: comfortable and no acute distress HENMT: General nose exam: Normal nares present Mouth: Yes moist mucous membranes Eyes: General: appearance normal, both eyes and all related structures Neck: Neck: supple and no JVD Resp: Effort & Inspection: normal respiratory effort Auscultation: clear to auscultation bilaterally Cardio: Rate: regular rate Rhythm: regular rhythm GI: GI Palp: Yes Soft to palpation Auscultation: normal bowel sounds Skin: General skin exam: normal color and no rashes or lesions noted Neuro: Other: and alert and well oriented time place and person she is wearing the patch on her left eye where she palsy the right-sided is improving and she is engage in therapy quite well Extrem: General: normal to inspection Objective Data Vital Signs Vital Signs: Vital Signs - 24 hr 12/27/19 20:26 12/27/19 22:00 12/28/19 06:00 Temperature 36.8 C 36.5 C Pulse Rate 76 71 78 Respiratory Rate 18 18 Blood Pressure 141/52 H 138/60 Pulse Oximetry 100 100 12/28/19 08:00 12/28/19 09:54 Temperature Pulse Rate 78 78 Respiratory Rate 18 Blood Pressure Pulse Oximetry 100 Intake/Output Intake/Output: Intake & Output 12/25/19 12/26/19 12/27/19 12/28/19 23:59 23:59 23:59 23:59 Intake Total 840 480 410 360 Balance 840 480 410 360 Meds/Results Medications: Active Medications Generic Name Dose Route Start Last Admin Trade Name Freq PRN Reason Stop Dose Admin Amlodipine Besylate 10 mg 12/19/19 09:00 12/28/19 09:54 Norvasc PO 10 mg DAILY HARRISON Administration Aspirin 81 mg 12/19/19 09:00 12/28/19 09:53 Aspirin Ec PO 81 mg DAILY HARRISON Administration Atorvastatin Calcium 40 mg 12/18/19 21:00 12/27/19 20:26 Lipitor PO 40 mg HS HARRISON Administration Clonidine HCl 0.1 mg 12/18/19 21:00 12/28/19 09:54 Catapres PO 0.1 mg Q12H HARRISON Administration Dextrose 12.5 gm 12/20/19 16:07 Dextrose 50% Syringe IV PUSH PRN PRN Hypoglycemia Protocol Glucagon 1 mg 12/20/19 16:07 Glucagon For Inj IM PRN PRN Hypoglycemia Protocol Glucose 15 gm 12/20/19 16:07 Glutose 15 PO PRN PRN Hyp
[2019-12-28 17:34] LABS: Glucose Point of Care 138 (65-105)
[2019-12-28 20:29] VITALS: PULSE 80
[2019-12-28] MEDS: ATORVASTATIN 40 MG TABLET PO (20:29)
[2019-12-28 21:18] LABS: Glucose Point of Care 169 (65-105)
[2019-12-28 22:00] VITALS: BP 141/53; PULSE 85; RESP 18; TEMP 36.5; O2SAT 99
[2019-12-29 06:00] VITALS: BP 139/57; PULSE 73; RESP 17; TEMP 36.4; O2SAT 100
[2019-12-29 06:21] LABS: Glucose Point of Care 215 (65-105)
[2019-12-29] MEDS: INSULIN ASPART (*BKC) 100 UNITS/ML SUB-Q (07:54)
[2019-12-29] MEDS: ASPIRIN 81 MG ENTERIC TABLET PO (09:50)
[2019-12-29] MEDS: AMLODIPINE BESYLATE 5 MG TABLET 10 MG PO (09:50)
[2019-12-29] MEDS: METOPROLOL SUCCINATE EXT REL 50 MG TABCR PO ×2 (09:51→20:12)
[2019-12-29] MEDS: CLONIDINE HCL 0.1 MG TABLET PO ×2 (09:51→20:13)
[2019-12-29] MEDS: metFORMIN HCL 500 MG TABLET 1000 MG PO ×2 (09:51→17:05)
[2019-12-29 11:50] LABS: Glucose Point of Care 198 (65-105)
[2019-12-29 14:00] VITALS: BP 136/50; PULSE 69; RESP 17; TEMP 36.2; O2SAT 100
[2019-12-29 16:57] LABS: Glucose Point of Care 175 (65-105)
[2019-12-29 20:12] VITALS: PULSE 72
[2019-12-29] MEDS: ATORVASTATIN 40 MG TABLET PO (20:13)
[2019-12-29 20:45] LABS: Glucose Point of Care 186 (65-105)
[2019-12-29 22:00] VITALS: BP 134/49; PULSE 76; RESP 18; TEMP 36.3; O2SAT 100
[2019-12-30 06:00] VITALS: BP 138/49; PULSE 69; RESP 18; TEMP 36.6; O2SAT 100
[2019-12-30 06:56] LABS: Glucose Point of Care 171 (65-105)
[2019-12-30] MEDS: CLONIDINE HCL 0.1 MG TABLET PO ×2 (08:58→20:38)
[2019-12-30] MEDS: metFORMIN HCL 500 MG TABLET 1000 MG PO ×2 (08:58→17:00)
[2019-12-30] MEDS: ASPIRIN 81 MG ENTERIC TABLET PO ×2 (08:58→17:00)
[2019-12-30] MEDS: AMLODIPINE BESYLATE 5 MG TABLET 10 MG PO (08:58)
[2019-12-30 11:47] LABS: Glucose Point of Care 255 (65-105)
--- NOTE | 2019-12-30 11:56 | PCPTNOTE ---
Светлана Swan was evaluated for a wheeled walker on 12/30/2019 by this physical therapist. The wheeled walker will resolve patient's mobility limitations and will be used for ADL's within the home. The patient can safely use the wheeled walker. ?The wheeled walker will resolve the patient?s mobility deficits, including transfers and gait in her home, gait outside of her home, ADL's safety. Taylor Bolden PT
[2019-12-30 14:00] VITALS: BP 133/51; PULSE 74; RESP 18; TEMP 36.6; O2SAT 100
--- NOTE | 2019-12-30 14:18 | WPDNEURORHBP ---
Subjective Date/time seen: 12/30/19 14:18 Interval history: this 64-year-old black woman is on the floor after suffering from brainstem stroke with left 6th nerve palsy and moderately severe right-sided hemiparesis she is improving in the rehab and present for the team conference without any new neurological symptoms and quite happy with the care she is receiving She denies any headache chest pain shortness of breath abdominal pain and diarrhea vomiting fevers chills or sore throat Review of Systems Constitutional: Constitutional: Reports no additional constitutional complaints Eyes: Eyes: Reports no additional eye complaints ENT: Reports system reviewed and no additional complaints, except as documented Cardiovascular: Cardiovascular: Reports no additional cardiovascular complaints Respiratory: Respiratory: Reports no additional respiratory complaints Gastrointestinal: Gastrointestinal: Reports no additional gastrointestinal complaints Genitourinary: Genitourinary: Reports no additional female genitourinary complaints Musculoskeletal: Musculoskeletal: Reports no additional musculoskeletal complaints Integumentary/Breasts: Skin/Breast: Reports system reviewed and no additional complaints, except as docu Neurologic: Reports system reviewed and no additional complaints, except as documented Psychiatric: Psychiatric: Reports no additional psychiatric complaints Functional Status Ambulation Ability Ability to Ambulate 10 Feet: Standby Assistance Ability to Ambulate 50 Feet With 2 Turns: Standby Assistance Ability to Ambulate 150 Feet: Standby Assistance Ambulation Assistive Devices: Walker, Wheeled Transfers Ability Ability to Transfer In/Out of Chair: Standby Assistance Exam Const: General: comfortable and no acute distress HENMT: General nose exam: Normal nares present Mouth: Yes moist mucous membranes Eyes: General: appearance normal, both eyes and all related structures Neck: Neck: supple and no JVD Resp: Effort & Inspection: normal respiratory effort Auscultation: clear to auscultation bilaterally Cardio: Rate: regular rate Rhythm: regular rhythm GI: GI Palp: Yes Soft to palpation Auscultation: normal bowel sounds Skin: General skin exam: normal color and no rashes or lesions noted Neuro: Other: patient is awake alert and well oriented time place and person with fluent speech 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 stable right-sided hemiparesis improving to a good degree and she is getting close to be discharged soon Extrem: General: normal to inspection Objective Data Vital Signs Vital Signs: Vital Signs - 24 hr 12/29/19 20:12 12/29/19 22:00 12/30/19 06:00 Temperature 36.3 C L 36.6 C Pulse Rate 72 76 69 Respiratory Rate 18 18 Blood Pressure 134/49 L 138/49 L Pulse Oximetry 100 100 Intake/Output Intake/Output: Intake & Output 12/27/19 12/28/19 12/29/19 12/30/19 23:59 23:59 23:59 23:59 Intake Total 410 600 680 480 Balance 410 600 680 480 Meds/Results Medications: Active Medications Generic Name Dose Route Start Last Admin Trade Name Freq PRN Reason Stop Dose Admin Amlodipine Besylate 10 mg 12/19/19 09:00 12/29/19 09:50 Norvasc PO 10 mg DAILY HARRISON Administration Aspirin 81 mg 12/19/19 09:00 12/29/19 09:50 Aspirin Ec PO 81 mg DAILY HARRISON Administration Atorvastatin Calcium 40 mg 12/18/19 21:00 12/29/19 20:13 Lipitor PO 40 mg HS HARRISON Administration Clonidine HCl 0.1 mg 12/18/19 21:00 12/29/19 20:13 Catapres PO 0.1 mg Q12H HARRISON Administration Dextrose 12.5 gm 12/20/19 16:07 Dextrose 50% Syringe IV PUSH PRN PRN Hypoglycemia Protocol Glucagon 1 mg 12/20/19 16:07 Glucagon For Inj IM PRN PRN Hypoglycemia Protocol Glucose 15 gm 12/20/19 16:07 Glutose 15 PO PRN PRN Hypoglycemia Protocol Dextrose 1,000 mls @ 100 mls/hr 12/20/19 16:07 Dextrose 5% 1,000 Ml IVPB PRN OK
--- NOTE | 2019-12-30 15:20 | PCCCNOTE ---
On 12/30/19, the student, [Samm Perea ], provided care and completed [facility] documentation on this patient. I have reviewed the student's documentation and agree with the findings.
[2019-12-30 16:46] LABS: Glucose Point of Care 185 (65-105)
[2019-12-30 16:58] VITALS: PULSE 74
[2019-12-30] MEDS: METOPROLOL SUCCINATE EXT REL 50 MG TABCR PO ×2 (16:58→20:38)
[2019-12-30 20:38] VITALS: PULSE 74
[2019-12-30] MEDS: ATORVASTATIN 40 MG TABLET PO (20:38)
[2019-12-30 21:36] LABS: Glucose Point of Care 225 (65-105)
[2019-12-30 22:00] VITALS: BP 136/59; PULSE 79; RESP 18; TEMP 36.3; O2SAT 100
[2019-12-31 06:00] VITALS: BP 130/52; PULSE 76; RESP 18; TEMP 36.4; O2SAT 100
[2019-12-31 07:27] LABS: Glucose Point of Care 229 (65-105)
[2019-12-31] MEDS: INSULIN ASPART (*BKC) 100 UNITS/ML SUB-Q ×2 (08:28→12:20)
[2019-12-31] MEDS: CLONIDINE HCL 0.1 MG TABLET PO ×2 (08:33→20:41)
[2019-12-31] MEDS: metFORMIN HCL 500 MG TABLET 1000 MG PO ×2 (08:33→16:58)
[2019-12-31] MEDS: AMLODIPINE BESYLATE 5 MG TABLET 10 MG PO (08:33)
[2019-12-31] MEDS: METOPROLOL SUCCINATE EXT REL 50 MG TABCR PO ×2 (08:34→20:40)
[2019-12-31 12:07] LABS: Glucose Point of Care 205 (65-105)
[2019-12-31 14:00] VITALS: BP 138/54; PULSE 71; RESP 16; TEMP 36.4; O2SAT 100
--- NOTE | 2019-12-31 14:14 | WPDNEURORHBP ---
Subjective Date/time seen: 12/31/19 14:14 Interval history: This 64-year-old woman is here after having had a brainstem stroke with right-sided hemiparesis and left 6 nurse palsy she is improving quite a bit ambulating with assistance quite a bit but still has diplopia if she uses binocular vision No headaches chest pain shortness of breath diarrhea vomiting fever chills or sore throat Review of Systems Review of Systems: All systems reviewed & are unremarkable except as noted in HPI and below Functional Status Ambulation Ability Ability to Ambulate 10 Feet: Independent Ability to Ambulate 50 Feet With 2 Turns: Independent Ability to Ambulate 150 Feet: Standby Assistance Ambulation Assistive Devices: Walker, Wheeled Transfers Ability Ability to Transfer In/Out of Chair: Standby Assistance Exam Const: General: comfortable and no acute distress HENMT: General nose exam: Normal nares present Mouth: Yes moist mucous membranes Eyes: General: appearance normal, both eyes and all related structures Other: 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 Neck: Neck: supple and no JVD Resp: Effort & Inspection: normal respiratory effort Auscultation: clear to auscultation bilaterally Cardio: Rate: regular rate Rhythm: regular rhythm GI: GI Palp: Yes Soft to palpation Auscultation: normal bowel sounds Skin: General skin exam: normal color and no rashes or lesions noted Neuro: Other: patient is awake and alert well oriented in time place and person is speech and language functions normal cranial nerve exam land except the left 6th nerve palsy is unremarkable her more weakness has improved and she is doing remarkably well Extrem: General: normal to inspection Objective Data Vital Signs Vital Signs: Vital Signs - 24 hr 12/30/19 16:58 12/30/19 20:38 12/30/19 22:00 Temperature 36.3 C L Pulse Rate 74 74 79 Respiratory Rate 18 Blood Pressure 136/59 L Pulse Oximetry 100 12/31/19 06:00 Temperature 36.4 C Pulse Rate 76 Respiratory Rate 18 Blood Pressure 130/52 L Pulse Oximetry 100 Intake/Output Intake/Output: Intake & Output 12/28/19 12/29/19 12/30/19 12/31/19 23:59 23:59 23:59 23:59 Intake Total 600 680 960 120 Balance 600 680 960 120 Meds/Results Medications: Active Medications Generic Name Dose Route Start Last Admin Trade Name Freq PRN Reason Stop Dose Admin Amlodipine Besylate 10 mg 12/19/19 09:00 12/31/19 08:33 Norvasc PO 10 mg DAILY HARRISON Administration Aspirin 81 mg 12/19/19 09:00 12/30/19 17:00 Aspirin Ec PO 81 mg DAILY HARRISON Administration Atorvastatin Calcium 40 mg 12/18/19 21:00 12/30/19 20:38 Lipitor PO 40 mg HS HARRISON Administration Clonidine HCl 0.1 mg 12/18/19 21:00 12/31/19 08:33 Catapres PO 0.1 mg Q12H HARRISON Administration Dextrose 12.5 gm 12/20/19 16:07 Dextrose 50% Syringe IV PUSH PRN PRN Hypoglycemia Protocol Glucagon 1 mg 12/20/19 16:07 Glucagon For Inj IM PRN PRN Hypoglycemia Protocol Glucose 15 gm 12/20/19 16:07 Glutose 15 PO PRN PRN Hypoglycemia Protocol Dextrose 1,000 mls @ 100 mls/hr 12/20/19 16:07 Dextrose 5% 1,000 Ml IVPB PRN PRN Hypoglycemia Protocol Insulin Aspart 2 - 5 units 12/20/19 17:00 12/31/19 12:20 Novolog SUB-Q 2 units TIDWM HARRISON Administration Protocol Metformin HCl 1,000 mg 12/26/19 13:21 12/31/19 08:33 Glucophage PO 1,000 mg BIDWM HARRISON Administration Metoprolol Succinate 50 mg 12/19/19 21:00 12/31/19 08:34 Toprol Xl PO 50 mg Q12HR HARRISON Administration Ondansetron HCl 4 mg 12/19/19 11:05 12/19/19 11:35 Zofran Odt PO 4 mg Q4HR PRN Administration Nausea And Vomiting Senna/Docusate Sodium 2 tab 12/24/19 09:21 12/27/19 06:06 Senokot S Tablet PO 2 tab Q12HR PRN Administration Constipation Labs Labs: Laboratory Results - last 24 hr 12/30/19 12/30/19 12/31/19
[2019-12-31 16:59] LABS: Glucose Point of Care 153 (65-105)
[2019-12-31 20:40] VITALS: PULSE 80
[2019-12-31] MEDS: ATORVASTATIN 40 MG TABLET PO (20:41)
[2019-12-31 21:07] LABS: Glucose Point of Care 165 (65-105)
[2019-12-31 22:00] VITALS: BP 135/51; PULSE 79; RESP 17; TEMP 36.4; O2SAT 100
[2020-01-01 06:00] VITALS: BP 140/52; PULSE 73; RESP 17; TEMP 36.1; O2SAT 100
[2020-01-01 06:54] LABS: Glucose Point of Care 189 (65-105)
[2020-01-01] MEDS: CLONIDINE HCL 0.1 MG TABLET PO (08:58)
[2020-01-01] MEDS: ASPIRIN 81 MG ENTERIC TABLET PO (08:58)
[2020-01-01] MEDS: METOPROLOL SUCCINATE EXT REL 50 MG TABCR PO (08:58)
[2020-01-01] MEDS: AMLODIPINE BESYLATE 5 MG TABLET 10 MG PO (08:58)
[2020-01-01] MEDS: metFORMIN HCL 500 MG TABLET 1000 MG PO (08:59)
[2020-01-01 11:49] LABS: Glucose Point of Care 277 (65-105)
[2020-01-01] MEDS: INSULIN ASPART (*BKC) 100 UNITS/ML SUB-Q (12:04)
--- NOTE | 2020-01-06 22:24 | DS_ITS ---
DATE OF DISCHARGE: 01/01/2020 DISCHARGE ACUTE REHAB DIAGNOSIS: Primary rehab impairment category of stroke with etiological diagnosis of acute left medial pontine infarct. DISCHARGE ACTIVE COMORBID CONDITIONS: 1. Hypertension. 2. Hyperlipidemia. 3. Diabetes mellitus. REASON FOR ADMISSION: A 64 years old right-handed female with history of. 1. Hypertension. 2. Hyperlipidemia. 3. Diabetes mellitus. Presented to [facility] on 12/12/2019 for complaints of chest pain. She also complained of dizziness and was found to have the hypertension on initial evaluation. Chest pain was lasting only for 3-5 seconds. Blood pressure in the ER was 249/96. She also complained of chronic right arm and right leg weakness, which was increasing in weakness and giving her difficulties in walking. Initial electrolytes were with low sodium, troponin 0.8, LDL 43, triglyceride 196, glucose 337 with A1c of 10.2. Chest x-ray negative. There was calcified plaque in thoracic aorta. EKG was 94 beats, right bundle-branch block, fascicular block, and bifascicular block. CT of the head was negative. MRI of the brain documented left medial pontine infarct. CTA demonstrated significant bilateral internal carotid arteries plaques for which she was continued on the statin, aspirin by the daycare teacher, was transferred here for further rehab. LEVEL OF FUNCTION AT THE TIME OF ADMISSION: The patient required only setup for eating, oral hygiene; substantial assistance for toileting, bathing, upper body dressing, lower body dressing. She was dependent for footwear. She required partial assistance for rolling in bed, sit to lying, lying to sitting, sit to stand, toilet transfer, car transfer, walking 10 feet, 10 feet on uneven surfaces, curb or step, 4 steps, 12 steps, and picking up the object. She required only setup for the chair transfer. She was unable to walk 50 feet with 2 turns, and obviously she was unable to walk 150 feet and 12 steps on the uneven surfaces. She was unable to take wheelchair 50 feet. ANTICIPATED REHAB GOALS: At the time of admission were to make her independent in all the modalities except supervision for the curb or step, 4 steps, 12 steps. HOSPITAL COURSE: During the hospitalization, she was actively involved in the physical therapy and occupational therapy. No other consultants were involved during this hospitalization. At the time of discharge, she was able to ambulate 10 feet independently, 50 feet with 2 turns independently, 150 feet with standby assistance with a wheeled walker. She was able to transfer in and out of chair standby assistance. General physical examination remained stable so as the vital signs, neuro examination remained unchanged. DISCHARGE INSTRUCTIONS: At the time of discharge, she was advised to no driving, may shower. Follow the diabetic diet. DISCHARGE MEDICATIONS: Her medication included: 1. Insulin aspart U-100 2-5 units t.i.d. with meals. 2. Metformin 1000 mg twice a day with meals. 3. 50 mg q.12 hours metoprolol. 4. Sennoside 2 tabs q.12 hours. 5. Amlodipine 10 mg daily. 6. Aspirin 81 mg daily. 7. Atorvastatin 40 mg at night. 8. Clonidine 0.1 mg q.12. DISCHARGE DESTINATION: She was discharged to her home with home health. FALL AND INJURIES DURING THE HOSPITALIZATION: None. D I MT: Jessa
== END 2020-01-01 13:11 | disposition home health service (06) | DRG 57 ==
PROVIDERS: Admitting Provider Psychiatry & Neurology Neurology; Visit Provider Psychiatry & Neurology Neurology
DX: I69.351 Hemiplegia and hemiparesis following cerebral infarction affecting right dominant side (principal); I45.2 Bifascicular block; I69.328 Other speech and language deficits following cerebral infarction; I69.322 Dysarthria following cerebral infarction; I69.398 Other sequelae of cerebral infarction; H53.2 Diplopia; H49.22 Sixth [abducent] nerve palsy, left eye; R49.0 Dysphonia; E11.42 Type 2 diabetes mellitus with diabetic polyneuropathy; E11.65 Type 2 diabetes mellitus with hyperglycemia; E78.5 Hyperlipidemia, unspecified; I65.23 Occlusion and stenosis of bilateral carotid arteries; I10 Essential (primary) hypertension; I16.0 Hypertensive urgency; I70.0 Atherosclerosis of aorta; K59.00 Constipation, unspecified; M21.371 Foot drop, right foot; Z79.4 Long term (current) use of insulin
CPT/HCPCS: 36415; 80048; 80061; 83036; 85025; 85055; 87081; 92507; 92523; 97110; 97112; 97116; 97150; 97162; 97166; 97530; 97535; A9270; J1815